=== PATIENT | female | born 1990 | race Caucasian/White ===

== ENCOUNTER 2024-06-22 10:44 | Emergency (ER) | payer BC, MEDICAID ==
[~2024-06-22] VITALS: Ht 172.7 cm; Wt 99.7 kg
[2024-06-22 10:48] VITALS: BP 116/82; TEMP 36.7; O2SAT 100
[2024-06-22 10:56] VITALS: RESP 18; O2SAT 97
[2024-06-22 11:16] LABS: BASOPHILS % 0.5 % (0.0-2.0); EOSINOPHILS % 0.1 % (0.0-5.0); HEMOGLOBIN. 13.3 g/dL (12.0-16.0); LYMPHOCYTES % 8.7 % (20.0-50.0); MEAN CORPUSCULAR HGB CONC 32.5 g/dL (31.0-37.0); MEAN CORPUSCULAR VOLUME 86.2 fL (81.0-99.0); MEAN PLATELET VOLUME 7.3 fl (7.4-10.4); MONOCYTES % 6.4 % (2.0-8.0); NEUTROPHILS % 84.3 % (40.0-76.0); PLATELET 394 x1000/uL (130-400); RED BLOOD CELL COUNT 4.75 mill/uL (4.2-5.4); RED CELL DISTRIBUTION WIDTH 14.8 % (11.6-14.6)
[2024-06-22 11:24] LABS: CHLORIDE 106 mEq/L (98-107); SODIUM 144 mEq/L (136-145)
[2024-06-22 11:26] LABS: CALCIUM 9.6 mg/dL (8.7-10.4); CARBON DIOXIDE 27 mEq/L (21-32)
[2024-06-22 11:31] LABS: CREATININE 0.9 mg/dL (0.6-1.0); GLUCOSE 126 mg/dL (70-105); UREA NITROGEN BLOOD 11 mg/dL (9-23)
[2024-06-22 11:33] LABS: ALANINE AMINOTRANSFERASE 12 IU/L (10-49); ALBUMIN 4.4 g/dL (3.2-4.8); ASPARTATE AMINOTRANSFERASE 13 IU/L (<34); BILIRUBIN DIRECT 0.1 mg/dL (<=3.0); BILIRUBIN TOTAL 0.5 mg/dL (0.1-1.0); PROTEIN TOTAL 7.7 g/dL (6.0-8.3)
[2024-06-22] MEDS: KETOROLAC 30MG/ML VIAL IM ONE (12:18)
[2024-06-22 14:58] LABS: CLARITY URINE CLOUDY (CLEAR); COLOR URINE RED (YELLOW); GLUCOSE URINE NEGATIVE (NEGATIVE); KETONES URINE NEGATIVE (NEGATIVE); LEUKOCYTE ESTERASE URINE TRACE (NEGATIVE); NITRITE URINE NEGATIVE (NEGATIVE); OCCULT BLOOD URINE 3+ (NEGATIVE); PH URINE 7.5 (4.5-8.0); PROTEIN URINE 1+ (NEGATIVE); UROBILINOGEN URINE 0.2 E.U./dL (0.2-1.0)
[2024-06-22 15:17] LABS: BACTERIA URINE 1+; RBC URINE TNTC /hpf (0-2); SQUAMOUS EPITHELIAL CELL URINE 1+ /lpf (RARE/1+); YEAST URINE NONE SEEN
[2024-06-22 15:28] VITALS: PULSE 88
[2024-06-22] MEDS ORDERED: HYDR-4001 MT (15:28)
[2024-06-22] MEDS ORDERED: KETO10TA2 MT (15:28)
== END 2024-06-22 16:01 | disposition home or self-care (01) ==
LOC: ER 10:44
DX: N20.9 Urinary calculus, unspecified (principal); N13.39 Other hydronephrosis; N20.0 Calculus of kidney
CPT/HCPCS: 99285; 74176; 80076; 80048; 81003; 81025; 83690; 85025; 36415; 96372; J1885